=== PATIENT | male | born 1980 ===

== ENCOUNTER 2021-03-09 23:30 | Emergency (ER) | payer OTHER, SELFPAY ==
[2021-03-09 23:54] VITALS: BP 137/86; PULSE 70; RESP 14; TEMP 36.8; O2SAT 96; BMI 21.9
[2021-03-10] MEDS: TET,DIPH,PERTUSS(ACELL),VAC/PF 0.5 ML SYRINGE IM (01:13)
[2021-03-10] MEDS: LIDO 1%/SOD BICARB 8.4% (10ML) 10 ML SYRINGE INJ (01:13)
[2021-03-10] MEDS: BACITRACIN OINT 0.9 GM PCKT 1 APPLIC TOP (01:25)
[2021-03-10 01:40] VITALS: BP 138/80; PULSE 66; RESP 17; O2SAT 99
--- NOTE | 2021-03-10 06:34 | ED.WOUNDLAC ---
HPI - Wound/Laceration General Chief Complaint: Wound/Laceration Stated Complaint: cut thumb Time Seen by Provider: 03/10/21 00:40 Source: patient and family Mode of arrival: Ambulatory Limitations: no limitations History of Present Illness HPI narrative: 41-year-old male nonsmoker with noncontributory medical history presents with his in the chief complaint of an accidental laceration on the dorsum of his right thumb with a sharp knife just prior to arrival. He has some bleeding and minimal pain but is otherwise well and free of complaint. He denies any numbness, tingling or weakness. Patient tetanus UTD: No Related Data Previous Rx's Medication Instructions Recorded doxycycline hyclate 100 mg capsule 100 mg PO BID #14 cap 03/10/21 Allergies Allergy/AdvReac Type Severity Reaction Status Date / Time No Known Drug Allergies Allergy Verified 03/09/21 23:54 Review of Systems Review of Systems Narrative: GENERAL: Denies chills, fatigue, malaise, fever, sweats. HEENT: Denies sinus pain, ear pain, sore throat, difficulty swallowing, dizziness. RESPIRATORY: Denies dyspnea, cough, wheezing, hemoptysis, sputum. CARDIOVASCULAR: Denies chest pain, palpitations, orthopnea, edema, GASTROINTESTINAL: Denies nausea, vomiting, abdominal pain, diarrhea, constipation, melena. : Denies dysuria, frequency, incontinence, hematuria, urinary retention. MUSCULOSKELETAL: denies weakness, joint pain, or bony pain SKIN: See HPI NEUROLOGIC: Denies weakness, headache, numbness, change in speech, confusion, seizures, incoordination. PSYCHIATRIC: No concerning psychosocial issues. 12 point review of systems is negative except for those stated above Patient History Social History Smoking Status: Never smoker Smoking Status: Never smoker alcohol intake frequency: a few times a week Substance Use Type: does not use Exam Narrative Exam Narrative: GEN: AOx3 and in mild distress EYES: Pupils are equal, round, and reactive to light and accommodation. Extraoccular muscles are intact bilaterally. There is no subconjunctival hemorrhage or exudate. CHEST: Lungs are clear to auscultation bilaterally and free of wheezes, rales, or rhonchi. Heart rate is regular rhythm, there are no murmurs, clicks, rubs, or gallops. There is no chest wall tenderness. ABD: Abdomen is soft and nontender. There is no guarding or rebound. Bowel sounds are normal in all 4 quadrants. There is no mass or organomegaly. EXT: Full painless ROM of all extremities with no loss of sensation or strength. SKIN: 1 cm relatively deep flap laceration Warm, pink, and dry. No erythema or rash Initial Vital Signs Initial Vital Signs: Vital Signs Temperature 98.3 F 03/09/21 23:54 Pulse Rate 70 03/09/21 23:54 Respiratory Rate 14 03/09/21 23:54 Blood Pressure 137/86 03/09/21 23:54 Pulse Oximetry 96 03/09/21 23:54 Procedures Laceration Repair Laceration 1: Site: hand Side (If applicable): right Size (cm): 1.0 Description: linear Depth: simple, single layer Local Anesthetic: lidocaine 1% and with bicarb Amount of anesthesia used (mL): 3 Pre-repair: wound explored Skin layer closed with: nylon Size (cm): 5-0 Number of sutures: 3 Course Orders Ordered: Discontinued Medications Bacitracin (Bacitracin Oint 0.9 Gm Pckt) 1 applic TOP NOW ONE Stop: 03/10/21 01:22 Last Admin: 03/10/21 01:25 Dose: 1 applic Documented by: VLAD Diphtheria/Tetanus/Acell Pertussis (Tet,Diph,Pertuss(Acell),Vac/Pf 0.5 Ml Syringe) 0.5 ml IM .ONCE ONE Stop: 03/10/21 01:10 Last Admin: 03/10/21 01:13 Dose: 0.5 ml Documented by: CHANG Lidocaine/Sodium Bicarbonate (Lido 1%/Sod Bicarb 8.4% (10ml) 10 Ml Syringe) 10 ml INJ NOW ONE Stop: 03/10/21 01:06 Last Admin: 03/10/21 01:13 Dose: 10 ml Documented by: CHANG Vital Signs Vital signs: Vital Signs - 8 hr 03/09/21 23:54 03/10/21 01:40 Temperature 98.3 F Pulse Rate 70 66 Respiratory Rate 14 17 Blood Pressure 137/86 138/80 Pulse Oximetry 96 99 Discharge Plan Departure Patient Disposition: Home Clinical Impression: Laceration Instructions: DI for Laceration Repair Activity Restrictions/Additional Instructions: Please keep the wound clean and dry to the best of your ability. Please monitor for signs of infection such as redness to the skin or increasing pain. Have the sutures removed by your doctor in about 7 days. If you are unable to get into your doctor, we would be happy to remove the sutures in that same timeframe. Prescriptions: New doxycycline hyclate 100 mg capsule 100 mg PO BID Qty: 14 RF: 0
== END 2021-03-10 02:13 | disposition home or self-care (01) ==
PROVIDERS: Emergency Provider Emergency Medicine
DX: S61.011A Laceration without foreign body of right thumb without damage to nail, initial encounter (principal); W26.0XXA Contact with knife, initial encounter; Z23 Encounter for immunization
CPT/HCPCS: 12001; 90471; 99283; 99284; 90715